=== PATIENT | female | born 1970 | race Caucasian/White ===

== ENCOUNTER 2018-04-03 08:41 | Day surgery (SDC) | payer BC, MEDICAID ==
[2018-04-03] MEDS ORDERED: hydrALAzine 20 MG INJ IV (10:30)
[2018-04-03] MEDS ORDERED: HYDROmorphONE 1 MG/5 ML IV SYRINGE IV ×2 (10:30)
[2018-04-03] MEDS ORDERED: FENTAnyl 50 MCG/ML VIAL IV ×2 (10:30)
[2018-04-03] MEDS ORDERED: MEPERIDINE 25 MG INJ IV (10:30)
[2018-04-03] MEDS ORDERED: METOCLOPRAMIDE 10 MG INJ IV (10:30)
[2018-04-03] MEDS ORDERED: OXYCODONE/ACETAMINOPHEN (5/325) TAB PO ×2 (10:30)
[2018-04-03] MEDS ORDERED: EPHEDrine SULFATE 50 MG/5 ML SYG IV (10:30)
[2018-04-03] MEDS ORDERED: LABETALOL HCL 20MG INJ IV (10:30)
[2018-04-03] MEDS ORDERED: DIPHENHYDRAMINE 50 MG INJ IV (10:30)
[2018-04-03] MEDS ORDERED: FENTAnyl 50 MCG/ML VIAL (10:31)
[2018-04-03] MEDS ORDERED: CEFAZOLIN 1 GM INJ (10:31)
[2018-04-03] MEDS ORDERED: MIDAZOLAM 1 MG/ML 2 ML INJ (10:31)
[2018-04-03] MEDS ORDERED: ROCURONIUM 50 MG INJ (10:31)
[2018-04-03] MEDS ORDERED: PROPOFOL 20 ML (10:31)
[2018-04-03] MEDS ORDERED: KETOROLAC 30 MG INJ (11:06)
[2018-04-03] MEDS ORDERED: ONDANSETRON 4 MG INJ (11:06)
[2018-04-03] MEDS ORDERED: METOCLOPRAMIDE 10 MG INJ (11:06)
[2018-04-03] MEDS ORDERED: DEXAMETHASONE 4 MG/ML 5 ML INJ (11:06)
[2018-04-03] MEDS: morphine SULFATE/PF (10 MG/10 ML) INJ (11:15)
[2018-04-03] MEDS ORDERED: SUGAMMADEX SODIUM 200 MG/2 ML VIAL IV (11:59)
[2018-04-03] MEDS: FENTAnyl 50 MCG/ML VIAL IV ×2 (12:17→12:36)
[2018-04-03] MEDS ORDERED: HYDROCODONE/APAP (5/325) TAB PO ×2 (12:30)
[2018-04-03] MEDS: ONDANSETRON 4 MG INJ IV (12:48)
[2018-04-03] MEDS: HYDROmorphONE 1 MG/5 ML IV SYRINGE IV (12:48)
== END 2018-04-03 14:05 | disposition home or self-care (01) ==
LOC: SDS 08:41
DX: M23.212 Derangement of anterior horn of medial meniscus due to old tear or injury, left knee (principal); M23.222 Derangement of posterior horn of medial meniscus due to old tear or injury, left knee; M23.242 Derangement of anterior horn of lateral meniscus due to old tear or injury, left knee; M23.252 Derangement of posterior horn of lateral meniscus due to old tear or injury, left knee; M94.262 Chondromalacia, left knee; M65.862 Other synovitis and tenosynovitis, left lower leg; I10 Essential (primary) hypertension
CPT/HCPCS: 29880; 84703